=== PATIENT | male | born 2000 | race Caucasian/White ===

== ENCOUNTER 2024-06-01 06:19 | Day surgery (SDC) | payer OTHER, SELFPAY ==
[2024-06-01] VITALS (11 sets, daily range): BP systolic 108–132; BP diastolic 47–86; BMI 36.9
[2024-06-01] MEDS: NORMOSOL-R/PLASMALYTE-A 1000 IV (09:52)
[2024-06-01] MEDS: DILAUDID 0.5 MG IV ×2 (14:06→14:45)
== END 2024-06-01 16:00 | disposition home or self-care (01) ==
LOC: SDS 06:19
PROVIDERS: ATTENDING PHYSICIAN Otolaryngology
DX: J35.01 Chronic tonsillitis (principal)
CPT/HCPCS: 42826; 88304